=== PATIENT | female | born 1975 | race African-American/Black ===

== ENCOUNTER 2024-12-21 23:31 | Emergency (ER) | payer BC ==
[~2024-12-21] VITALS: Ht 167.6 cm; Wt 82.0 kg
[2024-12-21 23:36] VITALS: O2SAT 96
[2024-12-22 00:27] LABS: BASOPHILS % 0.5 % (0.0-2.0); EOSINOPHILS % 1.1 % (0.0-5.0); HEMATOCRIT. 35.9 % (36.0-48.0); HEMOGLOBIN. 11.8 g/dL (12.0-16.0); LYMPHOCYTES % 28.7 % (20.0-50.0); MEAN PLATELET VOLUME 7.6 fl (7.4-10.4); MONOCYTES % 8.1 % (2.0-8.0); NEUTROPHILS % 61.6 % (40.0-76.0); PLATELET 347 x1000/uL (130-400); RED BLOOD CELL COUNT 4.32 mill/uL (4.2-5.4); RED CELL DISTRIBUTION WIDTH 14.1 % (11.6-14.6)
[2024-12-22 00:39] LABS: CREATININE 0.8 mg/dL (0.6-1.0); UREA NITROGEN BLOOD 18 mg/dL (9-23)
[2024-12-22 00:40] LABS: TROPONIN I HIGH SENSITIVITY < 4 ng/L (3.0-34)
[2024-12-22 00:41] LABS: ASPARTATE AMINOTRANSFERASE 32 IU/L (<34); BILIRUBIN DIRECT 0.1 mg/dL (<=3.0); BILIRUBIN TOTAL 0.4 mg/dL (0.1-1.0); PROTEIN TOTAL 7.6 g/dL (6.0-8.3)
[2024-12-22] MEDS: KETOROLAC 15MG/ML VIAL IM ONE (02:48)
[2024-12-22] MEDS: IOHEXOL-350 100 ML BOTTLE ONE (03:13)
[2024-12-22] MEDS ORDERED: HEPARIN 25,000 UNITS PREMIX 250 ML IV SCH (03:15)
[2024-12-22] MEDS: HEPARIN 80 UNITS/KG BOLUS IV SCH (04:45)
[2024-12-22] MEDS: HEPARIN 25,000 UNITS PREMIX 250 ML IV SCH (04:46)
[2024-12-22 07:40] VITALS: BP 122/77; PULSE 81; RESP 20; TEMP 36.8; O2SAT 100
[2024-12-22] MEDS ORDERED: HEPARIN BOLUS PRN aPTT <36 IV (10:30)
[2024-12-22] MEDS ORDERED: HEPARIN BOLUS PRN aPTT 37-44 IV (10:30)
== END 2024-12-22 07:35 | disposition short-term general hospital (02) ==
LOC: ER 23:31 → EDBEDREQ 12-22 03:45 → EDBEDREQTM 12-22 03:45 → ER 12-22 07:35 → CANBEDREQ 12-22 07:58
DX: I26.99 Other pulmonary embolism without acute cor pulmonale (principal)
CPT/HCPCS: 99285; 80076; 80048; 83690; 85025; 85379; 85730; 84484; 36415; 71045; 71275; 93970; 93005; 96365; 96372; 96376; Z7610 ×2; Q9967; J1644 ×2; J1885